=== PATIENT | female | born 1960 | race Caucasian/White ===

== ENCOUNTER 2019-11-11 12:40 | Inpatient (IN) ==
[2019-11-11 13:14] LABS: Amorphous Crystals,Urine Occasional /HPF (Few); Apearance,Urine Slightly Hazy (Clear); Bacteria,Urine Occasional /HPF (Few); Bilirubin,Urine Negative (Negative); Blood, Urine Negative (Negative); Glucose,Urine (UA) Negative (Negative); Ketones,Urine Negative (Negative); Mucus,Urine Occasional /LPF (Occasional); Nitrite,Urine Negative (Negative); Protein,Urine Negative; Squamous Epithelial Cell,Urine Occasional /HPF (0-10); Urine Color Yellow (Yellow); Urine Specific Gravity 1.016 (1.001-1.035); Urine Urobilinogen < 2.0 EU/DL (0.2-1.0); WBC,Urine <1 /HPF (0-6)
[2019-11-11] MEDS ORDERED: ONDANSETRON 4 MG/2 ML VIAL IV STA (13:19)
[2019-11-11] MEDS ORDERED: MORPHINE 4 MG/1 ML VIAL IV STA ×2 (13:19→15:16)
[2019-11-11 13:46] LABS: Basophils # 0.1 10*3/uL (0.0-0.2); Basophils % 0.6 % (0.0-0.8); Eosinophils # 0.1 10*3/uL (0.0-0.87); Eosinophils % 1.5 % (0.00-10.9); Hematocrit 40.2 VOL% (35.7-47.0); Hemoglobin 13.3 GM/DL (12.0-16.0); Immature Granulocytes % 1.1 %; Lymphocytes # 2.5 10*3/uL (1.4-4.0); Lymphocytes % 25.9 % (21.3-54.2); Mean Corpuscular HGB Conc 33.1 GM/DL (32-36); Mean Corpuscular Volume 92.4 FL (87-102); Mean Platelet Volume 8.6 FL (9.6-12.0); Monocytes % 8.4 % (1.7-12.7); Neutrophils % 62.5 % (38.7-73.9); Platelet Count 329 T/CUMM (130-400); Red Blood Count 4.35 MC/CUMM (3.8-5.5); Red Cell Distribution Width 13.2 % (9.3-17.3); White Blood Count 9.5 T/CUMM (4-12)
[2019-11-11 14:04] LABS: Albumin 3.6 G/DL (3.4-5.0); Bilirubin,Total 0.4 MG/DL (0.2-1.0); Calcium 8.5 MG/DL (8.5-10.1); Osmolality,Calculated 274.5 MOS/KG (273-304); Total Protein 6.8 G/DL (6.4-8.3)
[2019-11-11] MEDS ORDERED: KETOROLAC 30 MG/1 ML VIAL IV STA (14:40)
[2019-11-11 17:06] LABS: INR 0.9; PT Patient Result 10.2 SECS (9.6-12.2)
[2019-11-11] MEDS ORDERED: MORPHINE 4 MG/1 ML VIAL IV PRN (18:01)
[2019-11-11] MEDS ORDERED: ONDANSETRON 4 MG/2 ML VIAL IV PRN (18:01)
[2019-11-11] MEDS ORDERED: HEPARIN DRIP 25,000 UNITS/500 ML PREMIX IV SCH (18:30)
[2019-11-11] MEDS: HYDROmorphone 2 MG/1 ML VIAL IV PRN (20:33)
[2019-11-12] MEDS: HYDROmorphone 2 MG/1 ML VIAL IV PRN ×2 (04:54→20:00)
[2019-11-12 07:15] LABS: Basophils # 0.1 10*3/uL (0.0-0.2); Basophils % 0.5 % (0.0-0.8); Eosinophils # 0.1 10*3/uL (0.0-0.87); Eosinophils % 1.1 % (0.00-10.9); Hematocrit 37.7 VOL% (35.7-47.0); Hemoglobin 12.1 GM/DL (12.0-16.0); Immature Granulocytes % 0.7 %; Immature Granulocytes Absolute 0.07 #; Lymphocytes # 2.1 10*3/uL (1.4-4.0); Lymphocytes % 19.4 % (21.3-54.2); Mean Corpuscular HGB Conc 32.1 GM/DL (32-36); Mean Platelet Volume 8.9 FL (9.6-12.0); Monocytes % 9.8 % (1.7-12.7); Neutrophils % 68.5 % (38.7-73.9); Platelet Count 296 T/CUMM (130-400); Red Blood Count 4.01 MC/CUMM (3.8-5.5); Red Cell Distribution Width 13.3 % (9.3-17.3); White Blood Count 10.7 T/CUMM (4-12)
[2019-11-12 07:30] LABS: Calcium 8.4 MG/DL (8.5-10.1); Osmolality,Calculated 271.8 MOS/KG (273-304)
[2019-11-12] MEDS: PANTOPRAZOLE 40 MG TABLET PO SCH (09:13)
[2019-11-12] MEDS: NICOTINE 7 MG/24 HR PATCH TRANSDERM SCH (09:17)
[2019-11-12] MEDS: APIXABAN 5 MG TABLET PO SCH (22:14)
[2019-11-13] MEDS: HYDROmorphone 2 MG/1 ML VIAL IV PRN ×2 (00:15→08:26)
[2019-11-13] MEDS: PANTOPRAZOLE 40 MG TABLET PO SCH (08:19)
[2019-11-13] MEDS: APIXABAN 5 MG TABLET PO SCH (08:19)
[2019-11-13] MEDS: NICOTINE 7 MG/24 HR PATCH TRANSDERM SCH (08:23)
[2019-11-13 11:57] VITALS: BP 99/58
[2019-11-15 11:46] LABS: Protein C Activity Plasma 100 % (70 - 150)
[2019-11-15 16:43] LABS: DRVVT Screen Ratio 1.19 ratio (<1.20); INR 1.4 (0.9-1.1); Protein S Activity Plasma 123 % (65 - 160)
[2019-11-20 14:36] LABS: PTNT Reviewed By SEE COMMENTS
== END 2019-11-13 12:36 | disposition home or self-care (01) | DRG 698 ==
LOC: N.ED 12:40 → SUATTDRO 18:01 → N.EDINP 18:01 → N.3E 19:48
PROVIDERS: ADMIT Internal Medicine Cardiovascular Disease; ATTEND Internal Medicine